=== PATIENT | male | born 1935 | race Asian ===

== ENCOUNTER 2025-04-27 02:37 | Emergency (ER) | payer MEDICARE, MEDICAID ==
[~2025-04-27] VITALS: Ht 167.6 cm; Wt 98.0 kg
[2025-04-27 02:49] VITALS: O2SAT 99
[2025-04-27] MEDS ORDERED: CEPH500C2 MT (03:17)
[2025-04-27] MEDS: NEOMYCIN/BACITRACIN/POLYMYXIN OINT 14GM TOP ONE (03:49)
[2025-04-27 04:02] VITALS: BP 116/77; PULSE 16; RESP 14; TEMP 37.1; O2SAT 97
== END 2025-04-27 04:05 | disposition home or self-care (01) ==
LOC: ER 02:37
DX: S90.422A Blister (nonthermal), left great toe, initial encounter (principal); E11.9 Type 2 diabetes mellitus without complications; I11.9 Hypertensive heart disease without heart failure; X58.XXXA Exposure to other specified factors, initial encounter; Y93.89 Activity, other specified; Y92.89 Other specified places as the place of occurrence of the external cause; Y99.8 Other external cause status
CPT/HCPCS: 99283